=== PATIENT | male | born 1965 | race Caucasian/White ===

== ENCOUNTER 2021-09-10 09:47 | Emergency (ER) | payer BC, SELFPAY ==
[2021-09-10] MEDS ORDERED: EPINEPHrine 1 MG/10 ML Abboject SYRINGE IVP ONE (09:48)
== END 2021-09-10 09:49 | disposition expired ==
LOC: EDBD 09:47 → BURERS 09:47
DX: I46.9 Cardiac arrest, cause unspecified (principal); I10 Essential (primary) hypertension; E11.9 Type 2 diabetes mellitus without complications; F17.220 Nicotine dependence, chewing tobacco, uncomplicated; F17.200 Nicotine dependence, unspecified, uncomplicated
CPT/HCPCS: 31500; J0171